=== PATIENT | female | born 2000 | race African-American/Black ===

== ENCOUNTER 2024-12-26 14:33 | Emergency (ER) | payer SELFPAY, OTHER | END 2024-12-26 15:15 | disposition home or self-care (01) | LOC: CSHERS 14:33 | DX: S39.012A Strain of muscle, fascia and tendon of lower back, initial encounter (principal); S80.212A Abrasion, left knee, initial encounter; V89.2XXA Person injured in unspecified motor-vehicle accident, traffic, initial encounter | CPT/HCPCS: 99283 ==